=== PATIENT | male | born 1965 | race Caucasian/White ===

== ENCOUNTER 2020-04-23 15:30 | Inpatient (IN) | payer OTHER, SELFPAY ==
[2020-04-23] MEDS ORDERED: ISOVUE-370 76% 100ML VIAL As Ordered ONE (17:06)
[2020-04-23] MEDS ORDERED: MORPHINE 4 MG/ML 1ML VIAL/SYRINGE (J2270) As Ordered ONE (20:05)
[2020-04-23] MEDS ORDERED: ZOSYN 3.375GM VIAL (J2543) As Ordered ONE (23:14)
[2020-04-24] MEDS ORDERED: MORPHINE 4 MG/ML 1ML VIAL/SYRINGE (J2270) As Ordered ONE ×3 (00:16→08:36)
[2020-04-24] MEDS ORDERED: ZOSYN 3.375GM VIAL (J2543) As Ordered ONE (05:30)
[2020-04-24] MEDS ORDERED: HumaLOG INSULIN (NovoLOG) PER UNIT As Ordered ONE (06:13)
[2020-04-24] MEDS ORDERED: PANTOPRAZOLE 40MG VIAL (C9113 PER 1) As Ordered ONE (09:16)
[2020-04-24] MEDS ORDERED: ZOSYN 3.375GM VIAL (J2543) ONE ×3 (13:17→23:56)
[2020-04-24] MEDS ORDERED: HumaLOG INSULIN (NovoLOG) PER UNIT ONE ×2 (13:17→17:08)
[2020-04-24] MEDS ORDERED: MORPHINE 2 MG/ML 1ML VIAL (J2270) ONE (14:38)
[2020-04-24] MEDS ORDERED: MORPHINE 4 MG/ML 1ML VIAL/SYRINGE (J2270) ONE (20:03)
[2020-04-25] MEDS ORDERED: MORPHINE 4 MG/ML 1ML VIAL/SYRINGE (J2270) ONE ×2 (02:08→05:59)
[2020-04-25] MEDS ORDERED: ONDANSETRON 4MG/2ML VIAL ONE (02:13)
[2020-04-25] MEDS ORDERED: ZOSYN 3.375GM VIAL (J2543) ONE (05:59)
[2020-04-25] MEDS ORDERED: HumaLOG INSULIN (NovoLOG) PER UNIT ONE ×3 (08:54→17:01)
[2020-04-25] MEDS ORDERED: PANTOPRAZOLE 40MG VIAL (C9113 PER 1) ONE (08:54)
[2020-04-25] MEDS ORDERED: PERCOCET 5MG/325MG TAB ONE (13:04)
[2020-04-25] MEDS ORDERED: BISACODYL 10 MG SUPP ONE (13:04)
[2020-04-25] MEDS ORDERED: PERCOCET 5MG/325MG TAB As Ordered ONE (21:42)
[2020-04-26] MEDS ORDERED: PERCOCET 5MG/325MG TAB As Ordered ONE ×2 (04:14→22:32)
[2020-04-26] MEDS ORDERED: PANTOPRAZOLE 40MG VIAL (C9113 PER 1) As Ordered ONE (08:40)
[2020-04-26] MEDS ORDERED: METHYLNALTREXONE BROMIDE 12 MG/0.6 ML VIAL (RELISTOR) ONE (09:00)
[2020-04-26] MEDS ORDERED: BISACODYL 5 MG TAB As Ordered ONE (12:00)
[2020-04-27] MEDS ORDERED: PANTOPRAZOLE 40MG VIAL (C9113 PER 1) ONE (07:50)
[2020-04-27] MEDS ORDERED: HumaLOG INSULIN (NovoLOG) PER UNIT ONE (07:50)
[2020-04-27] MEDS ORDERED: POTASSIUM CHLORIDE 10 MEQ SR TABLET ONE (10:14)
--- NOTE | 2020-05-19 11:28 | ER ---
DATE: 04/23/2020 REASON FOR CONSULTATION: Abdominal pain. HISTORY OF PRESENT ILLNESS: The patient is a 54-year-old man who presented to the emergency department on April 23 complaining of severe abdominal pain. He reports that it began fairly suddenly at approximately 1:30 in the afternoon. He noted the onset of some nausea and had one episode of vomiting. The pain rapidly became quite severe and spread across the upper abdomen. He reports a feeling of bloating. He presented to the emergency department for evaluation. He reports an episode of similar pain about a month ago that had lasted for about three to four days and then resolved. That episode, however, was not nearly as severe in intensity as the current episode. The patient was evaluated in the emergency department and found to have a marked elevation of his lipase to approximately 9000. A CT scan of the abdomen and pelvis was obtained, which showed edematous changes and inflammatory changes around the pancreas. He was diagnosed with acute pancreatitis and is to be admitted by the hospitalist, Dr. Finch. Dr. Finch requested my consultation to evaluate the possibility that his issues are related to a gallbladder problem. ALLERGIES: Patient denies any known drug allergies. MEDICATIONS: Patient reports he is only on some amlodipine and bisoprolol. PAST MEDICAL HISTORY: Includes diabetes for which he does not require any insulin. He does have hypertension. His primary physician is Dr. Gutierrez in [place]. PAST SURGICAL HISTORY: Patient has undergone surgery on his left ankle. He has had a right knee reconstruction. He has undergone a right hip procedure and had a fairly recent left shoulder arthroscopy. REVIEW OF SYSTEMS: As per the hospitalist. He does deny any chest pain or palpitations. He has had no history of cough, wheezing, or shortness of breath. He has had no dysuria or hematuria. PHYSICAL EXAMINATION: GENERAL: Reveals a pleasant uncomfortable appearing man sitting up on a stretcher in the emergency department. He is alert and oriented. SKIN: Warm and dry. HEENT: Sclerae anicteric. Mucous membranes appear moist. NECK: Supple. HEART: Regular rhythm and he is not tachycardic at this time. LUNGS: Clear to auscultation. ABDOMEN: Appears somewhat distended. He does have some bowel sounds present. He is quite tender across his entire upper abdomen perhaps most pronounced in the mid-epigastrium. The lower quadrants are much less tender. LABORATORY DATA: Shows an elevation of his lipase. His liver function tests were normal. His other chemistries were unremarkable. IMAGING: CT scan of the abdomen and pelvis was done. I reviewed these images personally. The images show significant inflammatory changes along basically the length of the pancreas. There are inflammatory changes around the head of the pancreas, but also extending out to the tail with some edema in the tissues anterior to the left kidney. There is no free air or free fluid. The gallbladder appears full, but not particularly enlarged. There are no calcific stones identified and the border of the gallbladder appears sharp with surrounding tissues. IMPRESSION: Acute pancreatitis without clear cut evidence of any gallbladder disease. The patient does report that he has alcohol intermittently and admits that he had approximately eight beers last night. My experience has been that when choledocholithiasis is responsible for the pancreatitis, we generally see elevations of the AST, ALT, and alkaline phosphatase, as well as the bilirubin often. His liver function tests are entirely normal and with this acute ingestion of alcohol yesterday, I think this is most likely alcoholic pancreatitis. RECOMMENDATIONS: I believe admission by the hospitalist service is appropriate. I see no likelihood of need for surgical intervention. I note that a gallbladder ultrasound has been ordered and I can follow-up on this once the result is known, but I suspect it will be normal. JOYCE
[2020-05-21 12:42] LABS: BASO # 0.1 10^3/uL (0.0-0.2); BASO % 0.3 % (0.0-1.0); EOS # 0.2 10^3/uL (0.0-0.5); EOS % 0.8 % (0.0-3.0); HEMATOCRIT 49.5 % (42.0-52.0); HEMOGLOBIN 16.9 g/dl (13.5-17.5); LYMPH # 2.2 10^3/uL (1.5-5.0); LYMPH % 9.8 % (24.0-44.0); MEAN CORPUSCULAR HEMOGLOBIN 31.4 pg (27.0-33.0); MEAN CORPUSCULAR HGB CONC 34.1 g/dl (32.0-36.5); MONO # 1.4 10^3/uL (0.0-0.8); MONO % 6.3 % (0.0-5.0); NEUTROPHILS # 18.4 10^3/uL (1.5-8.5); NEUTROPHILS % 82.1 % (36.0-66.0); PLATELET COUNT, AUTOMATED 328 10^3/uL (150-450); RED BLOOD COUNT 5.38 10^6/uL (4.30-6.10); WHITE BLOOD COUNT 22.4 10^3/uL (4.0-10.0)
--- NOTE | 2020-06-05 08:16 | ECGEPIP ---
SINUS RHYTHM NON SPECIFIC T-WAVE ABNORMALITY NO PREVIOUS SEE SCANNED DOWNTIME REPORT MTDD
[2020-06-07 17:39] LABS: ALBUMIN 4.3 GM/DL (3.2-5.2); ALT/SGPT 58 U/L (12-78); BILIRUBIN,TOTAL 0.4 MG/DL (0.2-1.0); BLOOD UREA NITROGEN 16 MG/DL (7-18); CALCIUM LEVEL 9.5 MG/DL (8.5-10.1); CARBON DIOXIDE LEVEL 27 MEQ/L (21-32); CHLORIDE LEVEL 106 MEQ/L (98-107); GLOMERULAR FILTRATION RATE > 60.0 (>56); GLUCOSE, FASTING 173 MG/DL (70-100); LIPASE 9375 U/L (73-393); POTASSIUM SERUM 3.8 MEQ/L (3.5-5.1); SODIUM LEVEL 139 MEQ/L (136-145); TOTAL PROTEIN 7.7 GM/DL (6.4-8.2); TROPONIN I < 0.02 NG/ML (< 0.10)
[2020-06-10 11:55] LABS: APPEARANCE, URINE CLEAR (CLEAR); BACTERIA, URINE AUTO NEGATIVE (NEGATIVE); BILIRUBIN, URINE AUTO NEGATIVE (NEGATIVE); BLOOD, URINE BLOOD NEGATIVE (NEGATIVE); COLOR, URINE YELLOW (YELLOW); GLUCOSE, URINE (UA) AUTO 2+ mg/dL (NEGATIVE); KETONE, URINE AUTO 2+ mg/dL (NEGATIVE); LEUKOCYTE ESTERASE, URINE AUTO NEGATIVE (NEGATIVE); MUCUS, URINE SMALL (NEGATIVE); NITRITE, URINE AUTO NEGATIVE (NEGATIVE); PROTEIN, URINE AUTO NEGATIVE (NEGATIVE); RBC, URINE AUTO 4 /HPF (0-3); SPECIFIC GRAVITY URINE AUTO 1.038 (1.002-1.035); SQUAMOUS EPITHELIAL CELL UR AU 0 /HPF (0-6); UROBILINOGEN, URINE AUTO 0.2 mg/dL (0.0-2.0); WBC, URINE AUTO 0 /HPF (0-3)
[2020-06-10 22:10] LABS: BASO # 0.1 10^3/uL (0.0-0.2); BASO % 0.2 % (0.0-1.0); HEMATOCRIT 47.6 % (42.0-52.0); HEMOGLOBIN 16.3 g/dl (13.5-17.5); LYMPH # 1.6 10^3/uL (1.5-5.0); LYMPH % 7.4 % (24.0-44.0); MEAN CORPUSCULAR HEMOGLOBIN 31.6 pg (27.0-33.0); MEAN CORPUSCULAR HGB CONC 34.2 g/dl (32.0-36.5); MEAN CORPUSCULAR VOLUME 92.2 fl (80.0-96.0); MONO # 1.6 10^3/uL (0.0-0.8); MONO % 7.2 % (0.0-5.0); NEUTROPHILS # 18.4 10^3/uL (1.5-8.5); NEUTROPHILS % 84.5 % (36.0-66.0); PLATELET COUNT, AUTOMATED 316 10^3/uL (150-450); RED BLOOD COUNT 5.16 10^6/uL (4.30-6.10); WHITE BLOOD COUNT 21.8 10^3/uL (4.0-10.0)
[2020-06-12 14:43] LABS: HEMATOCRIT 45.4 % (42.0-52.0); HEMOGLOBIN 15.2 g/dl (13.5-17.5); MEAN CORPUSCULAR HEMOGLOBIN 31.2 pg (27.0-33.0); MEAN CORPUSCULAR HGB CONC 33.5 g/dl (32.0-36.5); MEAN CORPUSCULAR VOLUME 93.2 fl (80.0-96.0); PLATELET COUNT, AUTOMATED 277 10^3/uL (150-450); RED BLOOD COUNT 4.87 10^6/uL (4.30-6.10); WHITE BLOOD COUNT 22.9 10^3/uL (4.0-10.0)
[2020-06-12 18:29] LABS: HEMATOCRIT 41.1 % (42.0-52.0); HEMOGLOBIN 13.9 g/dl (13.5-17.5); MEAN CORPUSCULAR HEMOGLOBIN 31.7 pg (27.0-33.0); MEAN CORPUSCULAR HGB CONC 33.8 g/dl (32.0-36.5); MEAN CORPUSCULAR VOLUME 93.6 fl (80.0-96.0); PLATELET COUNT, AUTOMATED 241 10^3/uL (150-450); RED BLOOD COUNT 4.39 10^6/uL (4.30-6.10); WHITE BLOOD COUNT 19.8 10^3/uL (4.0-10.0)
[2020-06-17 09:03] LABS: HEMATOCRIT 42.5 % (42.0-52.0); HEMOGLOBIN 14.3 g/dl (13.5-17.5); MEAN CORPUSCULAR HEMOGLOBIN 31.1 pg (27.0-33.0); MEAN CORPUSCULAR HGB CONC 33.6 g/dl (32.0-36.5); MEAN CORPUSCULAR VOLUME 92.4 fl (80.0-96.0); PLATELET COUNT, AUTOMATED 261 10^3/uL (150-450); WHITE BLOOD COUNT 15.7 10^3/uL (4.0-10.0)
[2020-07-13 09:46] LABS: ALBUMIN 3.7 GM/DL (3.2-5.2); ALT/SGPT 45 U/L (12-78); AMYLASE 363 U/L (25-115); BILIRUBIN,TOTAL 0.5 MG/DL (0.2-1.0); BLOOD UREA NITROGEN 14 MG/DL (7-18); CALCIUM LEVEL 8.6 MG/DL (8.5-10.1); CARBON DIOXIDE LEVEL 27 MEQ/L (21-32); CHLORIDE LEVEL 106 MEQ/L (98-107); GLOMERULAR FILTRATION RATE > 60.0 (>56); GLUCOSE, FASTING 193 MG/DL (70-100); LIPASE 3459 U/L (73-393); POTASSIUM SERUM 4.1 MEQ/L (3.5-5.1); SODIUM LEVEL 141 MEQ/L (136-145); TOTAL PROTEIN 6.8 GM/DL (6.4-8.2)
[2020-07-20 19:40] LABS: ALBUMIN 3.2 GM/DL (3.2-5.2); ALT/SGPT 33 U/L (12-78); BILIRUBIN,TOTAL 1.2 MG/DL (0.2-1.0); BLOOD UREA NITROGEN 10 MG/DL (7-18); CALCIUM LEVEL 8.2 MG/DL (8.5-10.1); CARBON DIOXIDE LEVEL 28 MEQ/L (21-32); CHLORIDE LEVEL 102 MEQ/L (98-107); CREATININE FOR GFR 1.02 MG/DL (0.70-1.30); GLOMERULAR FILTRATION RATE > 60.0 (>56); GLUCOSE, FASTING 153 MG/DL (70-100); LIPASE 2590 U/L (73-393); POTASSIUM SERUM 3.8 MEQ/L (3.5-5.1); SODIUM LEVEL 136 MEQ/L (136-145); TOTAL PROTEIN 6.3 GM/DL (6.4-8.2)
[2020-07-20 23:13] LABS: ALBUMIN 2.8 GM/DL (3.2-5.2); ALT/SGPT 29 U/L (12-78); BILIRUBIN,TOTAL 1.2 MG/DL (0.2-1.0); BLOOD UREA NITROGEN 10 MG/DL (7-18); CALCIUM LEVEL 8.2 MG/DL (8.5-10.1); CARBON DIOXIDE LEVEL 27 MEQ/L (21-32); CHLORIDE LEVEL 100 MEQ/L (98-107); CREATININE FOR GFR 0.88 MG/DL (0.70-1.30); GLOMERULAR FILTRATION RATE > 60.0 (>56); GLUCOSE, FASTING 151 MG/DL (70-100); HEPATITIS A ANTIBODY IGM NEGATIVE (NEGATIVE); HEPATITIS B CORE ANTIBODY IGM NEGATIVE (NEGATIVE); HEPATITIS B SURFACE ANTIGEN NEGATIVE (NEGATIVE); HEPATITIS C VIRUS ABY INDEX 0.2 INDEX (<0.8); LIPASE 828 U/L (73-393); POTASSIUM SERUM 3.7 MEQ/L (3.5-5.1); SODIUM LEVEL 135 MEQ/L (136-145); TOTAL PROTEIN 6.2 GM/DL (6.4-8.2)
[2020-07-21 04:11] LABS: BLOOD UREA NITROGEN 9 MG/DL (7-18); CALCIUM LEVEL 8.2 MG/DL (8.5-10.1); CARBON DIOXIDE LEVEL 30 MEQ/L (21-32); CHLORIDE LEVEL 99 MEQ/L (98-107); CREATININE FOR GFR 0.82 MG/DL (0.70-1.30); GLOMERULAR FILTRATION RATE > 60.0 (>56); GLUCOSE, FASTING 196 MG/DL (70-100); LIPASE 588 U/L (73-393); POTASSIUM SERUM 3.4 MEQ/L (3.5-5.1); SODIUM LEVEL 134 MEQ/L (136-145)
== END 2020-04-27 11:30 | disposition home or self-care (01) | DRG 440 ==
LOC: M ED 15:30 → M MS5PR 18:20
PROVIDERS: ADMIT Internal Medicine; ATTEND Internal Medicine
DX: K85.90 Acute pancreatitis without necrosis or infection, unspecified (principal); I10 Essential (primary) hypertension; E87.6 Hypokalemia; F17.200 Nicotine dependence, unspecified, uncomplicated; E11.9 Type 2 diabetes mellitus without complications; Z79.899 Other long term (current) drug therapy